=== PATIENT | female | born 1970 ===

== ENCOUNTER 2021-06-20 03:25 | Inpatient (IN) ==
[2021-06-20] MEDS ORDERED: ONDANSETRON 4 MG/2 ML VIAL IV PRN (04:09)
[2021-06-20] MEDS ORDERED: MORPHINE 2 MG/1 ML SYRINGE IV PRN (04:09)
[2021-06-20] MEDS ORDERED: DEXTROSE 5% NACL 0.45% 1,000 ML IV SCH (04:30)
[2021-06-20] MEDS ORDERED: PIPERACILLIN/TAZOBACTAM 3,375 MG VIAL IV ONE (04:31)
[2021-06-20] MEDS ORDERED: PIPERACILLIN/TAZOBACTAM 3,375 MG in SODIUM CHLORIDE 0.9% 100 ML IV SCH (06:00)
[2021-06-20] MEDS ORDERED: PANTOPRAZOLE 40 MG VIAL IV SCH (09:00)
[2021-06-20] MEDS ORDERED: INSULIN REGULAR 100 UNIT/ML SUBCUT SCH (11:30)
[2021-06-20 15:42] VITALS: BP 144/63
== END 2021-06-20 16:29 | disposition home or self-care (01) | DRG 395 ==
LOC: EDBD → EDUNIT# → N.ED 03:25 → N.EDINP 04:15 → N.3E 04:21
PROVIDERS: ADMIT Surgery; ATTEND Surgery